=== PATIENT | male | born 1950 | race African-American/Black ===

== ENCOUNTER 2019-01-02 17:04 | Inpatient (IN) | payer MEDICARE, OTHER ==
[~2019-01-02] VITALS: Ht 185.4 cm; Wt 87.5 kg
[~2019-01-02 17:04] MED LIST: ALLO300T2 PO; ASPI-1159 PO; EZET1TAB7 PO; HUMALOG SUBCUT; PIOG45TA5 PO
[2019-01-02] MEDS ORDERED: KETOROLAC 30MG/ML VIAL IV STA (17:54)
[2019-01-02] MEDS ORDERED: MORPHINE SULFATE 4 MG/ML CPJ (NOT FOR IM USE) IV STA (17:54)
[2019-01-02] MEDS ORDERED: ONDANSETRON HCL 4MG/2ML INJ IV STA (17:54)
[2019-01-02 18:26] LABS: CHLORIDE 94 mEq/L (98-107); HEMATOCRIT. 35.4 % (42.0-52.0); HEMOGLOBIN. 11.4 g/dL (14.0-18.0); MEAN CORPUSCULAR HEMOGLOBIN 32.6 pg (28.0-32.0); MEAN CORPUSCULAR VOLUME 100.8 fL (80.0-94.0); MEAN PLATELET VOLUME 9.6 fl (7.4-10.4); PLATELET 185 x1000/uL (130-400); RED BLOOD CELL COUNT 3.51 mill/uL (4.7-6.1); RED CELL DISTRIBUTION WIDTH 17.1 % (11.6-14.6)
[2019-01-02 18:30] LABS: ETHANOL BLOOD < 10 mg/dL
[2019-01-02 18:33] LABS: INR 1.5; PARTIAL THROMBOPLASTIN TIME 26.6 sec (23.4-31.0); PROTHROMBIN TIME 14.9 sec (9.1-11.1)
[2019-01-02 19:33] LABS: PLATELET ESTIMATE NORMAL
[2019-01-02] MEDS ORDERED: INSULIN REGULAR (HUMULIN R) 300UNITS/3ML SUBCUT ONE (20:00)
[2019-01-02] MEDS ORDERED: MAGNESIUM/ALUMINUM HYDROXIDE/SIMETHICONE 30ML UDC PO PRN (21:00)
[2019-01-02] MEDS ORDERED: CLONIDINE 0.1MG TABLET PO PRN (21:00)
[2019-01-02] MEDS ORDERED: DEXTROSE 50% WATER 50ML SYRINGE IV PRN (21:00)
[2019-01-02] MEDS ORDERED: ONDANSETRON HCL 4MG/2ML INJ IV PRN (21:00)
[2019-01-02] MEDS ORDERED: ACETAMINOPHEN 325MG TABLET PO PRN (21:00)
[2019-01-02] MEDS ORDERED: HYDROMORPHONE HCL/PF 2MG/ML CPJ IV PRN (21:15)
[2019-01-02 23:30] VITALS: BP 118/73
[2019-01-02] MEDS: BLOOD SUGAR DIAGNOSTIC STRIP TEST SCH (23:54)
[2019-01-03] MEDS: INSULIN LISPRO 100 UNITS/ML SUBCUT SCH ×5 (00:13→21:00)
[2019-01-03] MEDS ORDERED: SENN-170 PO (01:11)
[2019-01-03] MEDS ORDERED: CLOP75TA16 PO (01:11)
[2019-01-03] MEDS ORDERED: ATOR80TA PO (01:11)
[2019-01-03] MEDS ORDERED: FAMO20TA8 PO (01:11)
[2019-01-03] MEDS ORDERED: ASPI-1159 PO (01:11)
[2019-01-03] MEDS ORDERED: PANT20TA3 PO (01:11)
[2019-01-03] MEDS ORDERED: CHOL100044 PO (01:11)
[2019-01-03] MEDS ORDERED: CHOL100034 PO (01:11)
[2019-01-03 04:00] VITALS: BP 102/59
[2019-01-03] MEDS: SODIUM CHLORIDE 0.9% INJ 3ML FLUSH IVF SCH ×2 (05:12→21:30)
[2019-01-03] MEDS: BLOOD SUGAR DIAGNOSTIC STRIP TEST SCH ×4 (05:13→21:30)
[2019-01-03 06:58] LABS: HEMATOCRIT. 33.2 % (42.0-52.0); HEMOGLOBIN. 10.8 g/dL (14.0-18.0); MEAN CORPUSCULAR HEMOGLOBIN 32.6 pg (28.0-32.0); MEAN PLATELET VOLUME 9.1 fl (7.4-10.4); PLATELET 173 x1000/uL (130-400); RED BLOOD CELL COUNT 3.32 mill/uL (4.7-6.1); RED CELL DISTRIBUTION WIDTH 17.1 % (11.6-14.6)
[2019-01-03 08:00] VITALS: BP 108/58
[2019-01-03] MEDS: FAMOTIDINE 20MG TABLET PO SCH (08:55)
[2019-01-03] MEDS: ASPIRIN 81MG EC TABLET PO SCH (11:50)
[2019-01-03 12:00] VITALS: BP 102/65
[2019-01-03 14:42] LABS: PLATELET ESTIMATE NORMAL
[2019-01-03 16:00] VITALS: BP_SYST 102; BP_SYST 103; BP_DIAS 65
[2019-01-03 20:00] VITALS: BP 106/64
[2019-01-04] VITALS (11 sets, daily range): BP systolic 108–125; BP diastolic 59–88
[2019-01-04] MEDS: BLOOD SUGAR DIAGNOSTIC STRIP TEST SCH ×3 (06:25→20:52)
[2019-01-04] MEDS: SODIUM CHLORIDE 0.9% INJ 3ML FLUSH IVF SCH ×3 (06:25→21:07)
[2019-01-04 07:18] LABS: HEMATOCRIT. 33.2 % (42.0-52.0); HEMOGLOBIN. 10.7 g/dL (14.0-18.0); MEAN CORPUSCULAR HEMOGLOBIN 32.4 pg (28.0-32.0); MEAN CORPUSCULAR VOLUME 100.3 fL (80.0-94.0); MEAN PLATELET VOLUME 9.1 fl (7.4-10.4); PLATELET 161 x1000/uL (130-400); RED BLOOD CELL COUNT 3.31 mill/uL (4.7-6.1)
[2019-01-04] MEDS: INSULIN LISPRO 100 UNITS/ML SUBCUT SCH ×3 (08:10→20:59)
[2019-01-04] MEDS: FAMOTIDINE 20MG TABLET PO SCH (09:42)
[2019-01-04] MEDS: ASPIRIN 81MG EC TABLET PO SCH (09:42)
[2019-01-04] MEDS ORDERED: LIDOCAINE HCL 1% 20ML VIAL (Pyxis) INJ ONE (10:09)
[2019-01-04] MEDS ORDERED: IODIXANOL 320MG/ML 100 ML BOTTLE IV ONE ×2 (10:09→11:17)
[2019-01-04] MEDS ORDERED: FENTANYL CITRATE/PF 50MCG/ML 2ML VIAL ONE (10:29)
[2019-01-04] MEDS ORDERED: MIDAZOLAM HCL 2 MG/2 ML VIAL ONE (10:29)
[2019-01-04] MEDS ORDERED: IOHEXOL-300 100 ML BOTTLE ONE (11:04)
[2019-01-04] MEDS ORDERED: ASPIRIN 325MG TABLET ONE (11:04)
[2019-01-04] MEDS ORDERED: CLOPIDOGREL 75MG TABLET ONE (11:04)
[2019-01-04 11:24] LABS: PLATELET ESTIMATE NORMAL
[2019-01-04] MEDS ORDERED: CEFAZOLIN 1000MG PREMIX 50 ML IV ONE (12:04)
[2019-01-04] MEDS ORDERED: ONDANSETRON HCL 4MG/2ML INJ IV PRN (12:15)
[2019-01-04] MEDS ORDERED: ACETAMINOPHEN 325MG TABLET PO PRN (12:15)
[2019-01-04] MEDS ORDERED: MORPHINE SULFATE 4 MG/ML CPJ (NOT FOR IM USE) IV PRN (12:15)
[2019-01-04] MEDS ORDERED: NICARDIPINE 100MCG/ML 10ML VIAL (CATH LAB) IV ONE (14:34)
[2019-01-04] MEDS ORDERED: NITROGLYCERIN 50MCG/ML 10ML VIAL (CATH LAB) IV ONE (14:34)
[2019-01-04] MEDS ORDERED: HEPARIN SODIUM 1,000 UNIT/1ML VIAL IV ONE ×2 (14:45→14:47)
[2019-01-04] MEDS: DIPHENHYDRAMINE 50MG/ML VIAL IV PRN (23:56)
[2019-01-05] VITALS (12 sets, daily range): BP systolic 104–158; BP diastolic 43–85
[2019-01-05] MEDS: BLOOD SUGAR DIAGNOSTIC STRIP TEST SCH ×4 (06:24→21:31)
[2019-01-05] MEDS: SODIUM CHLORIDE 0.9% INJ 3ML FLUSH IVF SCH ×3 (06:24→21:32)
[2019-01-05] MEDS: INSULIN LISPRO 100 UNITS/ML SUBCUT SCH ×4 (06:25→21:00)
[2019-01-05 07:16] LABS: HEMATOCRIT. 34.2 % (42.0-52.0); HEMOGLOBIN. 11.1 g/dL (14.0-18.0); MEAN CORPUSCULAR HEMOGLOBIN 32.6 pg (28.0-32.0); MEAN CORPUSCULAR VOLUME 100.2 fL (80.0-94.0); MEAN PLATELET VOLUME 9.3 fl (7.4-10.4); PLATELET 152 x1000/uL (130-400); RED BLOOD CELL COUNT 3.42 mill/uL (4.7-6.1); RED CELL DISTRIBUTION WIDTH 16.8 % (11.6-14.6)
[2019-01-05] MEDS: FAMOTIDINE 20MG TABLET PO SCH (08:11)
[2019-01-05] MEDS: ASPIRIN 81MG EC TABLET PO SCH (08:11)
[2019-01-05 09:50] LABS: PLATELET ESTIMATE NORMAL
[2019-01-05] MEDS: CLOPIDOGREL 75MG TABLET PO SCH (10:06)
[2019-01-05] MEDS: AMLODIPINE 2.5MG TABLET PO SCH (10:51)
[2019-01-06] VITALS (13 sets, daily range): BP systolic 111–135; BP diastolic 50–83
[2019-01-06] MEDS: SODIUM CHLORIDE 0.9% INJ 3ML FLUSH IVF SCH ×3 (06:14→22:17)
[2019-01-06] MEDS: BLOOD SUGAR DIAGNOSTIC STRIP TEST SCH ×4 (06:14→21:15)
[2019-01-06 06:34] LABS: HEMATOCRIT. 32.2 % (42.0-52.0); HEMOGLOBIN. 10.6 g/dL (14.0-18.0); MEAN CORPUSCULAR HEMOGLOBIN 32.6 pg (28.0-32.0); MEAN CORPUSCULAR VOLUME 99.3 fL (80.0-94.0); MEAN PLATELET VOLUME 9.1 fl (7.4-10.4); PLATELET 172 x1000/uL (130-400); RED BLOOD CELL COUNT 3.25 mill/uL (4.7-6.1); RED CELL DISTRIBUTION WIDTH 16.2 % (11.6-14.6)
[2019-01-06] MEDS: INSULIN LISPRO 100 UNITS/ML SUBCUT SCH ×4 (07:59→21:40)
[2019-01-06] MEDS: AMLODIPINE 2.5MG TABLET PO SCH (09:23)
[2019-01-06] MEDS: CLOPIDOGREL 75MG TABLET PO SCH (09:23)
[2019-01-06] MEDS: FAMOTIDINE 20MG TABLET PO SCH (09:23)
[2019-01-06] MEDS: ASPIRIN 81MG EC TABLET PO SCH (09:23)
[2019-01-06] MEDS: DIPHENHYDRAMINE 50MG/ML VIAL IV PRN (20:44)
[2019-01-06] MEDS ORDERED: LORAZEPAM 2MG/ML CPJ IV PRN (21:30)
[2019-01-06] MEDS ORDERED: LORAZEPAM 2MG/ML CPJ IV NR (21:30)
[2019-01-07] VITALS (12 sets, daily range): BP systolic 93–114; BP diastolic 51–73
[2019-01-07] MEDS: SODIUM CHLORIDE 0.9% INJ 3ML FLUSH IVF SCH ×3 (06:00→22:17)
[2019-01-07] MEDS: BLOOD SUGAR DIAGNOSTIC STRIP TEST SCH ×4 (06:40→21:00)
[2019-01-07] MEDS: INSULIN LISPRO 100 UNITS/ML SUBCUT SCH ×5 (07:20→21:01)
[2019-01-07 07:46] LABS: HEMATOCRIT. 35.6 % (42.0-52.0); HEMOGLOBIN. 11.3 g/dL (14.0-18.0); MEAN CORPUSCULAR HEMOGLOBIN 32.4 pg (28.0-32.0); MEAN CORPUSCULAR VOLUME 102.4 fL (80.0-94.0); MEAN PLATELET VOLUME 9.3 fl (7.4-10.4); PLATELET 165 x1000/uL (130-400); RED BLOOD CELL COUNT 3.48 mill/uL (4.7-6.1); RED CELL DISTRIBUTION WIDTH 17.1 % (11.6-14.6)
[2019-01-07] MEDS: AMLODIPINE 2.5MG TABLET PO SCH (09:01)
[2019-01-07] MEDS: ASPIRIN 81MG EC TABLET PO SCH (09:01)
[2019-01-07] MEDS: FAMOTIDINE 20MG TABLET PO SCH (09:01)
[2019-01-07] MEDS: CLOPIDOGREL 75MG TABLET PO SCH (09:01)
[2019-01-07 10:59] LABS: PLATELET ESTIMATE NORMAL
[2019-01-07] MEDS: LORAZEPAM 2MG/ML CPJ IV PRN (19:48)
[2019-01-07] MEDS: QUETIAPINE FUMARATE 50MG TABLET PO SCH (19:58)
[2019-01-07] MEDS ORDERED: TEMAZEPAM 15MG CAPSULE PO PRN (21:00)
[2019-01-07] MEDS ORDERED: TEMAZEPAM 15MG CAPSULE PO SCH (21:00)
[2019-01-08] VITALS (12 sets, daily range): BP systolic 91–121; BP diastolic 51–84
[2019-01-08 06:07] LABS: HEMOGLOBIN. 10.1 g/dL (14.0-18.0); MEAN CORPUSCULAR HEMOGLOBIN 32.9 pg (28.0-32.0); MEAN CORPUSCULAR VOLUME 100.6 fL (80.0-94.0); MEAN PLATELET VOLUME 9.4 fl (7.4-10.4); PLATELET 146 x1000/uL (130-400); RED BLOOD CELL COUNT 3.08 mill/uL (4.7-6.1); RED CELL DISTRIBUTION WIDTH 16.5 % (11.6-14.6)
[2019-01-08] MEDS: SODIUM CHLORIDE 0.9% INJ 3ML FLUSH IVF SCH ×3 (06:24→22:17)
[2019-01-08] MEDS: BLOOD SUGAR DIAGNOSTIC STRIP TEST SCH ×4 (06:40→21:12)
[2019-01-08 06:53] LABS: PLATELET ESTIMATE NORMAL
[2019-01-08] MEDS: INSULIN LISPRO 100 UNITS/ML SUBCUT SCH ×4 (08:55→21:12)
[2019-01-08] MEDS: ASPIRIN 81MG EC TABLET PO SCH (08:59)
[2019-01-08] MEDS: FAMOTIDINE 20MG TABLET PO SCH (08:59)
[2019-01-08] MEDS: AMLODIPINE 2.5MG TABLET PO SCH (08:59)
[2019-01-08] MEDS: CLOPIDOGREL 75MG TABLET PO SCH (08:59)
[2019-01-08] MEDS: QUETIAPINE FUMARATE 50MG TABLET PO SCH (08:59)
[2019-01-08 19:12] LABS: PLATELET ESTIMATE NORMAL
[2019-01-09] VITALS (13 sets, daily range): BP systolic 93–134; BP diastolic 33–83
[2019-01-09] MEDS: BLOOD SUGAR DIAGNOSTIC STRIP TEST SCH ×4 (06:43→20:49)
[2019-01-09] MEDS: SODIUM CHLORIDE 0.9% INJ 3ML FLUSH IVF SCH ×3 (06:44→22:02)
[2019-01-09 07:03] LABS: HEMATOCRIT. 35.2 % (42.0-52.0); HEMOGLOBIN. 11.3 g/dL (14.0-18.0); MEAN CORPUSCULAR HEMOGLOBIN 32.5 pg (28.0-32.0); MEAN PLATELET VOLUME 8.8 fl (7.4-10.4); PLATELET 162 x1000/uL (130-400); RED BLOOD CELL COUNT 3.48 mill/uL (4.7-6.1); RED CELL DISTRIBUTION WIDTH 16.8 % (11.6-14.6)
[2019-01-09] MEDS: INSULIN LISPRO 100 UNITS/ML SUBCUT SCH ×4 (08:07→20:51)
[2019-01-09] MEDS: CLOPIDOGREL 75MG TABLET PO SCH (08:08)
[2019-01-09] MEDS: QUETIAPINE FUMARATE 50MG TABLET PO SCH (08:08)
[2019-01-09] MEDS: AMLODIPINE 2.5MG TABLET PO SCH (08:09)
[2019-01-09] MEDS: FAMOTIDINE 20MG TABLET PO SCH (08:09)
[2019-01-09] MEDS: ASPIRIN 81MG EC TABLET PO SCH (08:09)
[2019-01-09 11:51] LABS: PLATELET ESTIMATE NORMAL
[2019-01-09] MEDS ORDERED: CARVEDILOL 3.125 MG TABLET PO SCH (12:00)
[2019-01-09] MEDS: CARVEDILOL 3.125 MG TABLET PO SCH (20:49)
[2019-01-09] MEDS: LORAZEPAM 2MG/ML CPJ IV PRN (20:57)
[2019-01-09] MEDS ORDERED: ATORVASTATIN CALCIUM 40MG TABLET PO SCH (21:00)
[2019-01-10] VITALS (11 sets, daily range): BP systolic 91–124; BP diastolic 53–81
[2019-01-10] MEDS: BLOOD SUGAR DIAGNOSTIC STRIP TEST SCH ×3 (06:10→17:41)
[2019-01-10] MEDS: SODIUM CHLORIDE 0.9% INJ 3ML FLUSH IVF SCH ×2 (06:10→14:00)
[2019-01-10 07:41] LABS: HEMATOCRIT. 31.4 % (42.0-52.0); HEMOGLOBIN. 10.1 g/dL (14.0-18.0); MEAN CORPUSCULAR HEMOGLOBIN 32.3 pg (28.0-32.0); MEAN CORPUSCULAR VOLUME 100.1 fL (80.0-94.0); PLATELET 148 x1000/uL (130-400); RED BLOOD CELL COUNT 3.14 mill/uL (4.7-6.1); RED CELL DISTRIBUTION WIDTH 16.1 % (11.6-14.6)
[2019-01-10] MEDS: ASPIRIN 81MG EC TABLET PO SCH (08:08)
[2019-01-10] MEDS: QUETIAPINE FUMARATE 50MG TABLET PO SCH (08:08)
[2019-01-10] MEDS: CLOPIDOGREL 75MG TABLET PO SCH (08:08)
[2019-01-10] MEDS: FAMOTIDINE 20MG TABLET PO SCH (08:08)
[2019-01-10] MEDS: INSULIN LISPRO 100 UNITS/ML SUBCUT SCH ×4 (08:09→17:20)
[2019-01-10] MEDS: AMLODIPINE 2.5MG TABLET PO SCH (09:00)
[2019-01-10] MEDS: CARVEDILOL 3.125 MG TABLET PO SCH (09:00)
[2019-01-10 11:04] LABS: PLATELET ESTIMATE NORMAL
[2019-01-10] MEDS ORDERED: INSULIN GLARGINE UD 100 UNITS/ML SYR SUBCUT SCH (13:30)
== END 2019-01-10 19:55 | DRG 246 ==
LOC: ER 17:04 → 7WST 19:59 → EDBEDREQ 20:01 → ENRESERV 22:27 → 3WST 01-04 12:25
PROVIDERS: ADMIT Internal Medicine; ATTEND Internal Medicine
PROC: 5A1D70Z Performance of Urinary Filtration, Intermittent, Less than 6 Hours Per Day (ICD-10-PCS; 2019-01-03)
PROC: 027236Z Dilation of Coronary Artery, Three Arteries with Three Drug-eluting Intraluminal Devices, Percutaneous Approach (ICD-10-PCS; principal; 2019-01-04)
PROC: 4A023N7 Measurement of Cardiac Sampling and Pressure, Left Heart, Percutaneous Approach (ICD-10-PCS; 2019-01-04)
PROC: B2111ZZ Fluoroscopy of Multiple Coronary Arteries using Low Osmolar Contrast (ICD-10-PCS; 2019-01-04)
PROC: B2151ZZ Fluoroscopy of Left Heart using Low Osmolar Contrast (ICD-10-PCS; 2019-01-04)
PROC: 5A1D70Z Performance of Urinary Filtration, Intermittent, Less than 6 Hours Per Day (ICD-10-PCS; 2019-01-04)
PROC: 5A1D70Z Performance of Urinary Filtration, Intermittent, Less than 6 Hours Per Day (ICD-10-PCS; 2019-01-06)
PROC: 5A1D70Z Performance of Urinary Filtration, Intermittent, Less than 6 Hours Per Day (ICD-10-PCS; 2019-01-08)
PROC: 5A1D70Z Performance of Urinary Filtration, Intermittent, Less than 6 Hours Per Day (ICD-10-PCS; 2019-01-10)
DX: T82.855A Stenosis of coronary artery stent, initial encounter (principal); I21.4 Non-ST elevation (NSTEMI) myocardial infarction; N18.6 End stage renal disease; I13.2 Hypertensive heart and chronic kidney disease with heart failure and with stage 5 chronic kidney disease, or end stage renal disease; I50.32 Chronic diastolic (congestive) heart failure; H40.9 Unspecified glaucoma; E87.6 Hypokalemia; D64.9 Anemia, unspecified; E11.22 Type 2 diabetes mellitus with diabetic chronic kidney disease; E11.319 Type 2 diabetes mellitus with unspecified diabetic retinopathy without macular edema; E11.51 Type 2 diabetes mellitus with diabetic peripheral angiopathy without gangrene; E11.65 Type 2 diabetes mellitus with hyperglycemia; E78.5 Hyperlipidemia, unspecified; H54.8 Legal blindness, as defined in USA; I25.10 Atherosclerotic heart disease of native coronary artery without angina pectoris; I27.20 Pulmonary hypertension, unspecified; I34.0 Nonrheumatic mitral (valve) insufficiency; Y83.8 Other surgical procedures as the cause of abnormal reaction of the patient, or of later complication, without mention of misadventure at the time of the procedure; M19.90 Unspecified osteoarthritis, unspecified site; M10.9 Gout, unspecified; Z78.1 Physical restraint status; Z79.02 Long term (current) use of antithrombotics/antiplatelets; Z79.4 Long term (current) use of insulin; Z79.82 Long term (current) use of aspirin; Z82.49 Family history of ischemic heart disease and other diseases of the circulatory system; I25.2 Old myocardial infarction; Z85.46 Personal history of malignant neoplasm of prostate; Z87.891 Personal history of nicotine dependence; Z92.3 Personal history of irradiation; Z99.2 Dependence on renal dialysis; Z79.899 Other long term (current) drug therapy; Y92.89 Other specified places as the place of occurrence of the external cause
CPT/HCPCS: 36415; 71045; 73560; 73590; 80048; 80320; 82962; 83880; 84484; 85347; 92928; 92929; 93005; 93306; 93458; 93923; 93970; 96374; 96375; 97162; 97166; 99285; C1725; C1769; C1874; C1887; C1893; J0690; J1200; J1644; J1815; J1885; J2060; J2250; J2270; J2405; J3010; J3490; Q9967; G0480

== ENCOUNTER 2019-01-24 11:06 | Inpatient (IN) | payer MEDICARE, OTHER ==
[~2019-01-24] VITALS: Ht 182.9 cm; Wt 95.7 kg
[~2019-01-24 11:06] MED LIST changes: -ALLO300T2 PO; +ATOR80TA PO; +CHOL100044 PO; +CLOP75TA16 PO; -EZET1TAB7 PO; +FAMO20TA8 PO; -HUMALOG SUBCUT; +PANT20TA3 PO; -PIOG45TA5 PO; +SENN-170 PO
[2019-01-24] MEDS ORDERED: SODIUM CHLORIDE 0.9% 1,000 ML IV ONE (11:34)
[2019-01-24 12:18] LABS: HEMATOCRIT. 37.2 % (42.0-52.0); HEMOGLOBIN. 12.3 g/dL (14.0-18.0); MEAN CORPUSCULAR VOLUME 97.3 fL (80.0-94.0); MEAN PLATELET VOLUME 8.5 fl (7.4-10.4); PLATELET 281 x1000/uL (130-400); RED BLOOD CELL COUNT 3.83 mill/uL (4.7-6.1); RED CELL DISTRIBUTION WIDTH 15.5 % (11.6-14.6)
[2019-01-24 12:25] LABS: CHLORIDE 100 mEq/L (98-107)
[2019-01-24 12:26] LABS: INR 1.4; PROTHROMBIN TIME 13.9 sec (9.6-11.0)
[2019-01-24 12:47] LABS: PLATELET ESTIMATE NORMAL
[2019-01-24] MEDS ORDERED: LORAZEPAM 2MG/ML CPJ IV ONE (13:00)
[2019-01-24] MEDS ORDERED: PANTOPRAZOLE SODIUM 40 MG/VIAL IV NR (16:45)
[2019-01-24] MEDS: SODIUM CHLORIDE 0.9% 1,000 ML IV SCH (18:24)
[2019-01-24 20:51] LABS: HEMATOCRIT 28.6 % (42.0-52.0); HEMOGLOBIN 9.4 g/dL (14.0-18.0); MEAN CORPUSCULAR HEMOGLOBIN 32.3 pg (28.0-32.0); PLATELET 178 x1000/uL (130-400); RED BLOOD CELL COUNT 2.92 mill/uL (4.7-6.1); RED CELL DISTRIBUTION WIDTH 15.1 % (11.6-14.6)
[2019-01-25] VITALS (17 sets, daily range): BP systolic 96–129; BP diastolic 50–79
[2019-01-25] MEDS: SODIUM CHLORIDE 0.9% 1,000 ML IV SCH ×3 (04:55→20:44)
[2019-01-25 07:36] LABS: BASOPHILS % 1.8 % (0.0-2.0); EOSINOPHILS % 3.5 % (0.0-5.0); HEMATOCRIT. 30.4 % (42.0-52.0); HEMOGLOBIN. 9.9 g/dL (14.0-18.0); LYMPHOCYTES % 11.1 % (20.0-50.0); MEAN CORPUSCULAR HEMOGLOBIN 32.1 pg (28.0-32.0); MEAN CORPUSCULAR VOLUME 98.8 fL (80.0-94.0); MEAN PLATELET VOLUME 8.5 fl (7.4-10.4); NEUTROPHILS % 68.6 % (40.0-76.0); PLATELET 208 x1000/uL (130-400); RED BLOOD CELL COUNT 3.08 mill/uL (4.7-6.1); RED CELL DISTRIBUTION WIDTH 15.5 % (11.6-14.6)
[2019-01-25] MEDS: FAMOTIDINE 20MG TABLET PO SCH (08:47)
[2019-01-25] MEDS: CHOLECALCIFEROL (D3) 1000 UNIT TABLET PO SCH (08:48)
[2019-01-25] MEDS: PANTOPRAZOLE SODIUM 40 MG/VIAL IV SCH (08:58)
[2019-01-25] MEDS ORDERED: DEXTROSE 50% WATER 50ML SYRINGE IV PRN (14:00)
[2019-01-25] MEDS ORDERED: INSULIN LISPRO 100 UNITS/ML SUBCUT SCH (18:00)
[2019-01-25] MEDS: BLOOD SUGAR DIAGNOSTIC STRIP TEST SCH (18:27)
[2019-01-26] VITALS (9 sets, daily range): BP systolic 105–137; BP diastolic 60–78
[2019-01-26] MEDS: BLOOD SUGAR DIAGNOSTIC STRIP TEST SCH ×4 (00:48→18:21)
[2019-01-26] MEDS: INSULIN LISPRO 100 UNITS/ML SUBCUT SCH ×4 (06:00→18:00)
[2019-01-26 06:55] LABS: HEMATOCRIT. 25.8 % (42.0-52.0); HEMOGLOBIN. 8.7 g/dL (14.0-18.0); MEAN CORPUSCULAR HEMOGLOBIN 32.7 pg (28.0-32.0); MEAN CORPUSCULAR VOLUME 96.9 fL (80.0-94.0); MEAN PLATELET VOLUME 8.1 fl (7.4-10.4); PLATELET 181 x1000/uL (130-400); RED BLOOD CELL COUNT 2.66 mill/uL (4.7-6.1)
[2019-01-26] MEDS: FAMOTIDINE 20MG TABLET PO SCH (08:00)
[2019-01-26] MEDS: CHOLECALCIFEROL (D3) 1000 UNIT TABLET PO SCH (08:01)
[2019-01-26] MEDS: PANTOPRAZOLE SODIUM 40 MG/VIAL IV SCH (08:36)
[2019-01-26 10:56] LABS: PLATELET ESTIMATE NORMAL
[2019-01-26] MEDS ORDERED: MIDAZOLAM HCL 5 MG/5 ML VIAL ONE (11:50)
[2019-01-26] MEDS ORDERED: FENTANYL CITRATE/PF 50MCG/ML 2ML VIAL ONE (11:51)
[2019-01-26] MEDS ORDERED: FENTANYL CITRATE/PF 50MCG/ML 2ML VIAL IV PRN (12:04)
[2019-01-26] MEDS ORDERED: MIDAZOLAM HCL 5 MG/5 ML VIAL IV PRN (12:05)
[2019-01-26] MEDS ORDERED: SIMETHICONE 40 MG/0.6 ML 30ML ONE (13:48)
[2019-01-26] MEDS ORDERED: BACTERIOSTATIC SODIUM CHLORIDE 0.9% 30ML VIAL IJ ONE (13:48)
[2019-01-26] MEDS: SODIUM CHLORIDE 0.9% 1,000 ML IV SCH ×2 (15:33→17:15)
[2019-01-26] MEDS: SUCRALFATE 1 G/10 ML UDC PO SCH ×2 (17:30→21:48)
[2019-01-27] VITALS (10 sets, daily range): BP systolic 115–146; BP diastolic 58–71
[2019-01-27] MEDS: SODIUM CHLORIDE 0.9% 1,000 ML IV SCH (05:12)
[2019-01-27] MEDS: BLOOD SUGAR DIAGNOSTIC STRIP TEST SCH ×4 (05:27→18:09)
[2019-01-27] MEDS: INSULIN LISPRO 100 UNITS/ML SUBCUT SCH ×4 (05:28→18:18)
[2019-01-27 06:56] LABS: HEMATOCRIT. 26.9 % (42.0-52.0); HEMOGLOBIN. 9.1 g/dL (14.0-18.0); MEAN CORPUSCULAR HEMOGLOBIN 32.5 pg (28.0-32.0); MEAN CORPUSCULAR VOLUME 96.3 fL (80.0-94.0); MEAN PLATELET VOLUME 8.2 fl (7.4-10.4); PLATELET 190 x1000/uL (130-400); RED BLOOD CELL COUNT 2.79 mill/uL (4.7-6.1); RED CELL DISTRIBUTION WIDTH 15.5 % (11.6-14.6)
[2019-01-27] MEDS: CHOLECALCIFEROL (D3) 1000 UNIT TABLET PO SCH (08:29)
[2019-01-27] MEDS: PANTOPRAZOLE SODIUM 40 MG/VIAL IV SCH (08:29)
[2019-01-27] MEDS: SUCRALFATE 1 G/10 ML UDC PO SCH ×4 (08:29→20:55)
[2019-01-27 12:04] LABS: PLATELET ESTIMATE NORMAL
[2019-01-27] MEDS: CLOPIDOGREL 75MG TABLET PO SCH (20:55)
[2019-01-27] MEDS: ONDANSETRON HCL 4MG/2ML INJ IV PRN (22:54)
[2019-01-28] VITALS: BP 119/72
[2019-01-28] MEDS: BLOOD SUGAR DIAGNOSTIC STRIP TEST SCH ×4 (01:21→17:57)
[2019-01-28] MEDS: INSULIN LISPRO 100 UNITS/ML SUBCUT SCH ×4 (01:24→18:20)
[2019-01-28 04:00] VITALS: BP 97/66
[2019-01-28] MEDS: SUCRALFATE 1 G/10 ML UDC PO SCH ×4 (07:33→20:44)
[2019-01-28 07:53] VITALS: BP 112/85
[2019-01-28 07:57] LABS: EOSINOPHILS % 3.5 % (0.0-5.0); HEMATOCRIT. 29.1 % (42.0-52.0); HEMOGLOBIN. 9.6 g/dL (14.0-18.0); LYMPHOCYTES % 16.4 % (20.0-50.0); MEAN CORPUSCULAR HEMOGLOBIN 31.9 pg (28.0-32.0); MEAN CORPUSCULAR VOLUME 96.4 fL (80.0-94.0); MEAN PLATELET VOLUME 8.5 fl (7.4-10.4); MONOCYTES % 17.1 % (2.0-8.0); PLATELET 232 x1000/uL (130-400); RED BLOOD CELL COUNT 3.02 mill/uL (4.7-6.1); RED CELL DISTRIBUTION WIDTH 15.2 % (11.6-14.6)
[2019-01-28] MEDS: PANTOPRAZOLE SODIUM 40 MG/VIAL IV SCH (08:25)
[2019-01-28] MEDS: CHOLECALCIFEROL (D3) 1000 UNIT TABLET PO SCH (08:25)
[2019-01-28] MEDS: CLOPIDOGREL 75MG TABLET PO SCH (08:25)
[2019-01-28 12:00] VITALS: BP 111/47
[2019-01-28 16:00] VITALS: BP 102/59
[2019-01-28] MEDS: ONDANSETRON HCL 4MG/2ML INJ IV PRN (20:21)
[2019-01-28] MEDS: METOPROLOL TARTRATE 25MG TABLET PO SCH (20:45)
[2019-01-28] MEDS ORDERED: ATORVASTATIN CALCIUM 40MG TABLET PO SCH (21:00)
[2019-01-28] MEDS ORDERED: DIPHENHYDRAMINE 50MG/ML VIAL IV NR (21:45)
[2019-01-28 22:00] VITALS: BP 125/69
[2019-01-28] MEDS: QUETIAPINE FUMARATE 50MG TABLET PO SCH (22:31)
[2019-01-29 04:00] VITALS: BP 125/60
[2019-01-29] MEDS: BLOOD SUGAR DIAGNOSTIC STRIP TEST SCH ×4 (05:42→17:08)
[2019-01-29] MEDS: INSULIN LISPRO 100 UNITS/ML SUBCUT SCH ×4 (05:52→17:28)
[2019-01-29 07:07] LABS: HEMATOCRIT. 30.4 % (42.0-52.0); HEMOGLOBIN. 9.9 g/dL (14.0-18.0); MEAN CORPUSCULAR HEMOGLOBIN 31.9 pg (28.0-32.0); MEAN PLATELET VOLUME 8.6 fl (7.4-10.4); PLATELET 241 x1000/uL (130-400); RED CELL DISTRIBUTION WIDTH 15.3 % (11.6-14.6)
[2019-01-29 07:29] LABS: PHOSPHORUS 3.1 mg/dL (2.5-4.9)
[2019-01-29 08:00] VITALS: BP 120/79
[2019-01-29] MEDS: QUETIAPINE FUMARATE 50MG TABLET PO SCH (09:00)
[2019-01-29] MEDS: CHOLECALCIFEROL (D3) 1000 UNIT TABLET PO SCH (09:00)
[2019-01-29] MEDS: PANTOPRAZOLE SODIUM 40 MG/VIAL IV SCH (09:00)
[2019-01-29] MEDS: CLOPIDOGREL 75MG TABLET PO SCH (09:00)
[2019-01-29] MEDS: METOPROLOL TARTRATE 25MG TABLET PO SCH (09:00)
[2019-01-29] MEDS: SUCRALFATE 1 G/10 ML UDC PO SCH ×3 (09:12→17:00)
[2019-01-29 12:00] VITALS: BP 127/82
[2019-01-29 12:03] LABS: PLATELET ESTIMATE NORMAL
[2019-01-29 16:00] VITALS: BP 116/70
[2019-01-29 16:01] VITALS: BP 127/82
[2019-01-29] MEDS ORDERED: PANTOPRAZOLE 40MG DR TABLET PO SCH (21:00)
== END 2019-01-29 18:35 | DRG 377 ==
LOC: ER 11:06 → 5EST 12:32 → EDBEDREQ 12:35 → ENRESERV 20:03 → 5EST 23:12 → 6EST 01-29 10:35
PROVIDERS: ADMIT Internal Medicine; ATTEND Internal Medicine
PROC: 5A1D70Z Performance of Urinary Filtration, Intermittent, Less than 6 Hours Per Day (ICD-10-PCS; 2019-01-25)
PROC: 0DB78ZX Excision of Stomach, Pylorus, Via Natural or Artificial Opening Endoscopic, Diagnostic (ICD-10-PCS; principal; 2019-01-26)
PROC: 5A1D70Z Performance of Urinary Filtration, Intermittent, Less than 6 Hours Per Day (ICD-10-PCS; 2019-01-27)
PROC: 5A1D70Z Performance of Urinary Filtration, Intermittent, Less than 6 Hours Per Day (ICD-10-PCS; 2019-01-28)
DX: K29.71 Gastritis, unspecified, with bleeding (principal); G93.41 Metabolic encephalopathy; N18.6 End stage renal disease; E44.0 Moderate protein-calorie malnutrition; E87.2 Acidosis; I13.2 Hypertensive heart and chronic kidney disease with heart failure and with stage 5 chronic kidney disease, or end stage renal disease; I50.42 Chronic combined systolic (congestive) and diastolic (congestive) heart failure; K25.4 Chronic or unspecified gastric ulcer with hemorrhage; E11.22 Type 2 diabetes mellitus with diabetic chronic kidney disease; D64.9 Anemia, unspecified; E87.6 Hypokalemia; E78.5 Hyperlipidemia, unspecified; E11.51 Type 2 diabetes mellitus with diabetic peripheral angiopathy without gangrene; H40.9 Unspecified glaucoma; H54.8 Legal blindness, as defined in USA; E11.319 Type 2 diabetes mellitus with unspecified diabetic retinopathy without macular edema; M10.9 Gout, unspecified; E78.00 Pure hypercholesterolemia, unspecified; I25.10 Atherosclerotic heart disease of native coronary artery without angina pectoris; I27.20 Pulmonary hypertension, unspecified; I25.2 Old myocardial infarction; Z78.1 Physical restraint status; Z79.02 Long term (current) use of antithrombotics/antiplatelets; Z79.82 Long term (current) use of aspirin; Z82.49 Family history of ischemic heart disease and other diseases of the circulatory system; Z85.46 Personal history of malignant neoplasm of prostate; Z87.11 Personal history of peptic ulcer disease; Z87.891 Personal history of nicotine dependence; Z92.3 Personal history of irradiation; Z95.5 Presence of coronary angioplasty implant and graft; Z99.2 Dependence on renal dialysis
CPT/HCPCS: 36415; 71045; 80048; 82140; 82270; 82962; 83605; 83735; 84100; 84484; 85027; 86850; 86900; 88305; 88312; 88313; 93005; 96374; 96375; 99291; A6261; C9113; J1200; J1815; J2060; J2250; J2405; J3010; J3490; J7030